=== PATIENT | female | born 1965 | race Caucasian/White ===

== ENCOUNTER 2023-11-17 11:54 | Outpatient (OUT) | payer BC, SELFPAY ==
[2023-11-17 13:25] LABS: Internal Control Within Normal Limits; Occult Blood Negative
== END 2023-11-17 11:55 | disposition home or self-care (01) ==
LOC: LAB 11:56
PROVIDERS: PCP Family Medicine; Visit Provider Family Medicine
DX: Z00.00 Encounter for general adult medical examination without abnormal findings (principal)
CPT/HCPCS: G0328

== ENCOUNTER 2024-04-01 07:36 | Emergency (ER) | payer BC, SELFPAY ==
[2024-04-01 07:43] VITALS: BP 141/98; PULSE 74; TEMP 36.7; O2SAT 97; BMI 29.8
--- OUTSIDE RECORDS SUMMARY | 2024-04-01 07:43 | XMS_ITS | CCD ---
Author Organization [facility] CliniSyil Care Team Providers Care Textile Conservator Name Role Phone Jairo Galaviz Unavailable Alecia Vallecillo Unavailable MD Jason Quick Primary Care Provider [phone] FAISAL Vallecillo Attending Provider DO Jairo Galaviz Attending Provider [phone] MD Jason Quick Referring Provider Self, Referral Attending Provider Unavailable Vera Nagel Unavailable ARIANNE ., DR GOMEZ Primary Care Unavailable HOY ., DR GOMEZ Admitting Unavailable HOY ., DR GOMEZ Attending Unavailable HOY ., DR GOMEZ Consulting Unavailable HOY ., DR GOMEZ Consulting Unavailable HOY ., DR GOMEZ Primary Care Unavailable HOY ., DR GOMEZ Admitting Unavailable HOY ., DR GOMEZ Attending Unavailable HOY ., DR GOMEZ Consulting Unavailable HOY ., DR GOMEZ Primary Care Unavailable HOY ., DR GOMEZ Admitting Unavailable HOY ., DR GOMEZ Attending Unavailable HOY ., DR GOMEZ Primary Care Unavailable MEG ROBISON Admitting Unavailable MEG ROBISON Attending Unavailable MEG ROBISON Consulting Unavailable MD Jason Quick Primary Care Provider [phone] MD Jason Quick Referring Provider Self, Referral Attending Provider Unavailable NADIA FLOWER Referring Unavailable JASON QUICK Primary Care Unavailable MD Jason Quick Primary Care Provider [phone] Self, Referral Attending Provider Unavailable Jason Quick Primary Care Unavailable Self, Referral Attending Unavailable Self, Referral Admitting Unavailable Medications Current Medications Medication Drug Class(es) Dates Sig (Normalized) Sig (Original) Acetaminophen (4 sources) Tylenol Active [id number] 200 actuat albuterol 0.09 mg/actuat metered dose inhaler (1 source) beta2-Adrenergic Agonist Start: 06-24-2022 take 2 puff(s) by inhalation every four hours as needed Albuterol Sulfate HFA 108 (90 Base) MCG/ACT 2 puffs as needed Inhalation every 4 hours for 14 days Jun, Active benzonatate 100 mg oral capsule (1 source) Non-narcotic Antitussive Start: 06-24-2022 take 1 capsule by mouth every eight hours Tessalon Perles 100 MG 1 capsule as needed Orally Three times a day for 7 days Jun, Active Cetirizine (8 sources) Histamine-1 Receptor Antagonist ZyrTEC Allergy Active citalopram 40 mg oral tablet (14 sources) Serotonin Reuptake Inhibitor Start: 08-11-2023 take 40 mg by mouth once daily Citalopram Active 40 MG PO Daily August 11, 2023 12:00am Citalopram [place] bromide 40 MG Orally Once a day Active Crutches Underarm Crutches (1 source) Start: 11-23-2020 Crutches Under arm Crutches Nov, Active doxycycline monohydrate 100 mg oral capsule (1 source) Tetracycline-clas s Drug Start: 06-24-2022 take 1 capsule by mouth every twelve hours Doxycycline Monohydrate 100 MG 1 capsule Orally every 12 hrs for 10 days Jun, Active Handicap placards as directed (9 sources) Start: 11-25-2020 Handicap placa rds as directed as directed as directed as directed for 182 days 6 months Nov, Active meclizine hydrochloride 25 mg oral tablet (6 sources) Antiemetic Start: 08-11-2023 take 25 mg by mouth four times daily Meclizine Active 25 MG PO Four times daily August 11, 2023 12:00am Meclizine HCl Ac tive 24 hr metFORMIN hydrochloride 500 mg extended release oral tablet (5 sources) Biguanide Start: 10-06-2023 End: 12-28-2023 take 1 tablet by mouth twice daily, then take 1 tablet by mouth every week, then take 2 tablets by mouth twice daily Metformin Active 1000 MG PO Twice daily 360 December 28, 2023 5:20pm Start with one tab daily, increase weekly by 1 tablet, goal 2 tabs twice daily. move to previous dose if any toleration issues methylPREDNISolone 4 mg oral tablet (1 source) Corticosteroid Start: 06-24-2022 methylPREDNISolone 4 MG as directed Orally for daily dose take half with breakfast, half with dinner for 6 days Jun, Active pantoprazole 40 mg delayed release oral tablet (17 sources) Proton Pump Inhibitor Start: 11-24-2023 take 40 mg by mouth once daily Pantoprazole Active 40 MG PO Daily November 24, 2023 8:51am Start: 08-11-2023 End: 11-24-2023 Pantoprazole Discontinued MG PO August 11, 2023 12:00am November 24, 2023 8:51am Start: 08-11-2023 Pantoprazole A ctive MG PO August 11, 2023 12:00am Pantoprazole Sod ium Active Semaglutide (Weight Loss) (2 sources) Start: 12-07-2023 Semaglutide (W eight Loss) (Wemadivy) 0.25 mg/0.5 mL pen injector Active 0.25 MG SUBCUT every week 2 December 07, 2023 12:00am administer weeks 1 through 4 of therapy Parmjit George (1 source) Start: 11-25-2020 Parmjit suarez Nov, Active Completed/Discontinued Medications Medication Drug Class(es) Dates Sig (Normalized) Sig (Original) Crutches-Aluminum - (7 sources) Start: 11-15-2021 Crutches-Aluminum - as directed Nov, Not-Taking Start: 11-15-2021 Crutches-Alumi num - as directed Nov, Active Estradiol (9 sources) Estrogen Estrace Not-Taki ng Estrace Active naproxen sodium 550 mg oral tablet (9 sources) Nonsteroidal Anti-inflammatory Drug Start: 11-15-2021 take 1 tablet by mouth every twelve hours at mealtime as needed Naproxen Sodium 550 MG 1 tablet with food or milk as needed Orally every 12 hrs for 7 days Nov, Not-Taking Start: 11-23-2020 take 1 tablet by ellen th every twelve hours at mealtime as needed Naproxen 500 MG 1 tablet with food or milk as needed Orally every 12 hrs for 7 days Nov, Active Toradol 30 mg/ml (7 sources) Start: 11-23-2020 Toradol 30 mg/ ml Nov, 60 mg Problems Active Problems Problem Classification Problem Date Documented Da te Episodic/Chronic Anxiety disorders (18 sources) Anxiety; Translations: [Anxiety disorder, unspecified] Onset: 09-18-2023 08-11-2023 Chronic Diabetes mellitus without complication (9 sources) Prediabetes; Translations: [Prediabetes] 10-06-2023 Episodic Disorders of lipid metabolism (13 sources) Hyperlipidemia, unspecified; Translations: [Hyperlipidemia] Onset: 09-18-2023 08-11-2023 Chronic Fracture of lower limb (4 sources) Nondisplaced fracture of fifth metatarsal bone, right foot, initial encounter for closed fracture; Translations: [Fracture of unspecified metatarsal bone(s), right foot, initial encounter for closed fracture] Onset: 11-15-2021 Resolved: 12-01-2021 Episodic Immunizations and screening for infectious disease (1 source) Contact with and (suspected) exposure to other viral communicable diseases Episodic Mood disorders (1 source) Mood disorders; Translations: [Depression, unspecified] Onset: 09-18-2023 Nutritional deficiencies (13 sources) Vitamin D deficiency, unspecified; Translations: [Vitamin D deficiency] Onset: 09-18-2023 08-11-2023 Chronic Other lower respiratory disease (1 source) Unspecified acute lower respiratory infection Episodic Other lower respiratory disease (9 sources) Snoring; Translations: [Other respiratory abnormalities] Onset: 09-18-2023 08-11-2023 Episodic Other lower respiratory disease (4 sources) Snoring; Translations: [Snoring] 08-11-2023 Episodic Other nutritional; endocrine; and metabolic disorders (9 sources) Obesity, unspecified; Translations: [Obesity, unspecified] Onset: 09-18-2023 08-11-2023 Chronic Other nutritional; endocrine; and metabolic disorders (4 sources) Body mass index 30+ - obesity; Translations: [Body mass index (BMI) 33.0-33.9, adult] 08-11-2023 Chronic Other nutritional; endocrine; and metabolic disorders (4 sources) Obesity; Translations: [Obesity, unspecified] 08-11-2023 Chronic Other nutritional; endocrine; and metabolic disorders (8 sources) Body mass index (BMI) 33.0-33.9, adult; Translations: [Body Mass Index 33.0-33.9, adult] 08-11-2023 Chronic Other screening for suspected conditions (not mental disorders or infectious disease) (5 sources) Encounter for screening for malignant neoplasm of cervix; Translations: [Encounter for screening mammogram for malignant neoplasm of breast] Onset: 01-03-2022 Episodic Unclassified (2 sources) CONTACT W/AND (SUSP) EXPOS COVID-19; Translations: [CONTACT W/AND (SUSP) EXPOS COVID-19] Onset: 09-22-2021 Viral infection (1 source) COVID-19; Translations: [COVID-19] Onset: 09-22-2021 Past or Other Problems Problem Classification Problem Date Documented Da te Episodic/Chronic Fever of unknown origin (1 source) Fever, unspecified; Translations: [FEVER UNSPECIFIED] Onset: 09-22-2021 Episodic Fracture of lower limb (2 sources) Nondisplaced fracture of lateral malleolus of left fibula, initial encounter for closed fracture; Translations: [Nondisplaced fracture of lateral malleolus of left fibula, initial encounter for closed fracture S82.65XA] Onset: 01-08-2021 Resolved: 02-19-2021 Episodic Other circulatory disease (1 source) Other specified symptoms and signs involving the circulatory and respiratory systems; Translations: [OTH SPEC SX SIGNS INVLV CIRC RS] Onset: 09-22-2021 Episodic Other injuries and conditions due to external causes (1 source) Unspecified injury of right foot, initial encounter Onset: 11-15-2021 Resolved: 11-15-2021 Episodic Unclassified (1 source) CONTACT W/AND (SUSP) EXPOS COVID-19; Translations: [CONTACT W/AND (SUSP) EXPOS COVID-19] Onset: 09-16-2021 Results Test Name Value Interpretation Reference Range Facility MM screening mammo BI w/CADo n 01-26-2024 MM screening mammo BI w/CAD [facility] Main [address] [address] Mammography Report Signed Patient: Erin Avery MR#: [id number] : 1965 Acct:[id number] Age/Sex: 58 / F ADM Date: 01/26/24 Loc: MD Room: Type: [facility] Attending Dr: Referral Self Copies to: Jason Quick MD SELF,REFERRAL Ordering Provider: SELF,REFERRAL Date of Service: 01/26/24 MM/MM screening mammo BI w/CAD: SCREENING CLINICAL DATA: Screening for malignancy. SCREENING MAMMOGRAM - FULL FIELD DIGITAL WITH TOMOSYNTHESIS AND CAD COMPARISON:Mammogram s dating back to 2019. Tomosynthesis craniocaudal and mediolateral oblique views of both breasts were obtained using low- dose digital technique. This examination was reviewed with the aid of CAD. FINDINGS: The breast parenchyma is heterogeneously dense. There are no dominant masses, typically malignant calcifications or architectural distortion. There has been no significant interval change. MM/MM screening mammo BI w/CAD IMPRESSION: NO MAMMOGRAPHIC EVIDENCE OF MALIGNANCY. ROUTINE FOLLOW-UP IS RECOMMENDED IN ONE YEAR. RESULT CODE: 1 Negative DENSITY CODE: 3 (approximately 51-75% glandular) FOLLOW UP: 1YR The false-negative rate of mammography is approximately 10-percent. Management of a palpable abnormality must be based on clinical grounds. Patient was entered into a reminder system with a target due date for the next mammogram. Impression dictated by: Bhanu Mclaughlin Jr., D.OPo01/26/2024 10:31 AM Dictation Location: [facility] Transcribed By: [facility] 01/26/24 1031 Dictated By: Bhanu Mclaughlin Jr, DO 01/26/24 1030 Signed By: 01/26/24 1031 Normal [facility] HbA1c HPLC (Bld) [Mass fract ion]on 10-06-2023 HbA1c (Bld) [Mass fraction] 5.7 % [facility] COMPREHENSIVE METABOLIC PANE Ming 09-18-2023 Albumin [Mass/Vol] 4.0 g/dL Normal 3.2-5.3 [facility] Comment on above: Performed By: #### [place], [address]-4, TSHR, 2132-9, 68837-4 #### [facility] ([id number]) [address], [address] [place] [address] ALP [Catalytic activity/Vol] 111 U/L Normal 39-130 [facility] Comment on above: Performed By: #### C MP, 72966-8, TSHR, 2131-12, 29803-6 #### [facility] ([id number]) [address], [address] [place] [address] ALT [Catalytic activity/Vol] 21 U/L Normal 0-31 [facility] Comment on above: Performed By: #### C MP, 45753-2, TSHR, 2131-12, 12819-6 #### [facility] ([id number]) [address], [address] [place] [address] Anion gap [Moles/Vol] 8 mmol/L Normal 5-15 [facility] Comment on above: Performed By: #### C CHRISTOPHER, 81260-7, TSHR, 2131-12, 59218-9 #### [facility] ([id number]) [address], [address] [place] [address] AST [Catalytic activity/Vol] 20 U/L Normal 0-41 [facility] Comment on above: Performed By: #### C MP, 90329-8, TSHR, 2131-12, 74369-1 #### [facility] ([id number]) [address], [address] [place] [address] Bilirubin [Mass/Vol] 0.4 mg/dL Normal 0.3-1.2 [facility] Comment on above: Performed By: #### C MP, 61852-1, TSHR, 2131-12, 09713-0 #### [facility] ([id number]) [address], [address] [place] [address] Calcium [Mass/Vol] 9.2 mg/dL Normal 8.5-10.5 [facility] Comment on above: Performed By: #### C MP, 55531-8, TSHR, 2131-12, 80735-4 #### [facility] ([id number]) [address], [address] [place] [address] Chloride [Moles/Vol] 103 mmol/L Normal 98-109 [facility] Comment on above: Performed By: #### C CHRISTOPHER, 86137-1, TSHR, 2131-12, 07325-3 #### [facility] ([id number]) [address], [address] [place] [address] CO2 [Moles/Vol] 30 mmol/L Normal 22-32 [facility] Comment on above: Performed By: #### C CHRISTOPHER, 20136-9, TSHR, 2131-12, 31157-9 #### [facility] ([id number]) [address], [address] [place] [address] Creatinine [Mass/Vol] 0.93 mg/dL Normal 0.40-1.00 [facility] Comment on above: Result Comment: METH OD TRACEABLE TO IDMS STANDARD Performed By: #### C CHRISTOPHER, 31788-1, TSHR, 2131-12, 39054-4 #### [facility] ([id number]) [address], [address] [place] [address] GFR/1.73 sq M.predicted among non-blacks MDRD (S/P/Bld) [Vol rate/Area] 71 mL/min/{1.73_m2} Normal >59 [facility] Comment on above: Result Comment: Reported eGFR is based on the CKD-EPI 2020 equation that does not use a race coefficient. Performed By: #### C CHRISTOPHER, 93682-3, TSHR, 2131-12, 04641-0 #### [facility] ([id number]) [address], [address] [place] [address] Glucose [Mass/Vol] 105 mg/dL High 65-99 [facility] Comment on above: Performed By: #### C CHRISTOPHER, 71357-2, TSHR, 2131-12, 06373-9 #### [facility] ([id number]) [address], [address] [place] [address] Potassium [Moles/Vol] 3.9 mmol/L Normal 3.5-5.0 [facility] Comment on above: Performed By: #### C CHRISTOPHER, 70718-8, TSHR, 2131-12, 99016-7 #### [facility] ([id number]) [address], [address] [place] [address] Protein [Mass/Vol] 7.0 g/dL Normal 6.0-8.0 [facility] Comment on above: Performed By: #### C CHRISTOPHER, 64332-8, TSHR, 2131-12, 37621-3 #### [facility] ([id number]) [address], [address] [place] [address] Sodium [Moles/Vol] 141 mmol/L Normal 134-146 [facility] Comment on above: Performed By: #### Erick WHITE, 99096-1, TSHR, 2131-12, 81866-8 #### [facility] ([id number]) [address], [address] [place] [address] Urea nitrogen [Mass/Vol] 13 mg/dL Normal 5-23 [facility] Comment on above: Performed By: #### Erick WHITE, 17483-3, TSHR, 2131-12, 53559-1 #### [facility] ([id number]) [address], [address] [place] [address] Laboratory - Chemistry and C hemistry - challengeon 09-18-2023 Cholesterol [Mass/Vol] 182 mg/dL [facility] Cholesterol in HDL [Mass/Vol] 55 mg/dL [facility] Cholesterol in LDL [Mass/Vol] 104 mg/dL [facility] Triglyceride [Mass/Vol] 113 mg/dL [facility] Albumin [Mass/Vol] 4.0 g/dL [facility] ALP [Catalytic activity/Vol] 111 U/L [facility] ALT [Catalytic activity/Vol] 21 U/L [facility] AST [Catalytic activity/Vol] 20 U/L [facility] Bilirubin [Mass/Vol] 0.4 mg/dL [facility] Calcium [Mass/Vol] 9.2 mg/dL [facility] Chloride [Moles/Vol] 103 mmol/L [facility] CO2 [Moles/Vol] 30 mmol/L [facility] Cobalamin (Vitamin B12) [Mass/Vol] 415 pg/mL [facility] Creatinine [Mass/Vol] 0.93 mg/dL [facility] Glucose [Mass/Vol] 105 mg/dL [facility] Potassium [Moles/Vol] 3.9 mmol/L [facility] Protein [Mass/Vol] 7.0 g/dL [facility] Sodium [Moles/Vol] 141 mmol/L [facility] Urea nitrogen [Mass/Vol] 13 mg/dL [facility] Lipid 1996 panelon 4 Cholesterol [Mass/Vol] 182 mg/dL Normal 150-200 [facility] Comment on above: Performed By: #### Erick WHITE, 34048-5, [facility], 2131-12, 41208-7 #### [facility] ([id number]) [address], [address] [place] [address] Cholesterol in HDL [Mass/Vol] 55 mg/dL Normal >39 [facility] Comment on above: Result Comment: HDL <40 mg/dL - High Risk HDL > or = 40mg/dL- Desirable HDL >60 mg/dL - Negative Risk Performed By: #### Erick WHITE, 37893-9, TSHR, 2131-12, 38823-6 #### [facility] ([id number]) [address], [address] [place] [address] Cholesterol in LDL [Mass/Vol] 104 mg/dL Normal <130 [facility] Comment on above: Result Comment: LDL <100 mg/dL - Desirable LDL >160 mg/dL - High Risk Performed By: #### C CHRISTOPHER, 33572-7, TSHR, 2131-12, 41346-9 #### [facility] ([id number]) [address], [address] [place] [address] Cholesterol in VLDL [Mass/Vol] 23 mg/dL Normal 0-30 [facility] Comment on above: Performed By: #### Erick WHITE, 55280-0, TSHR, 2131-12, 84879-9 #### [facility] ([id number]) [address], [address] [place] [address] CHOLESTEROL:HDL 3.3 Normal 1.0-5.0 [facility] Comment on above: Performed By: #### Erick WHITE, 97387-6, TSHR, 9, 93907-9 #### [facility] ([id number]) [address], [address] [place] [address] Triglyceride [Mass/Vol] 113 mg/dL Normal 27-150 [facility] Comment on above: Performed By: #### C CHRISTOPHER, 85649-6, TSHR, 2131-12, 50840-0 #### [facility] ([id number]) [address], [address] [place] [address] No Panel Informationon 09-17 25-Hydroxy Vitamin D Total 30.2 ng/mL [facility] Thyroid Stimulating Hormone 3rd Gen 2.23 [facility] Estimated GFR (Non- 71 mL/min [facility] TSH WITH REFLEXon 09-18-2023 TSH 2.23 uIU/mL Normal 0.49-4.67 [facility] Comment on above: Performed By: #### Erick WHITE, 72580-4, TSHR, 2131-12, 10315-0 #### [facility] ([id number]) [address] [place] [address], [address] [place] [address] VITAMIN B12on 09-18-2023 Cobalamin (Vitamin B12) [Mass/Vol] 415 pg/mL Normal 180-914 [facility] Comment on above: Performed By: #### C MP, 97723-9, TSHR, 2131-12, 62602-9 #### [facility] ([id number]) [address], [address] [place] [address] Vitamin D+Metabolites [Mass/ Vol]on 09-18-2023 VITAMIN D 25 HYD TOT 30.2 ng/mL Normal 30-100 [facility] Comment on above: Result Comment: Vitamin D status 25 [place] Vitamin D Deficiency <20 ng/mL Insufficiency 20-29 ng/mL Sufficiency 30-100 ng/mL Toxicity >100 ng/mL NOTE: A pediatric reference range has not been established by the mother superior of this kit. The [place] [employer] recommends a Vitamin D level of = or >20ng/mL in infants and children. Performed By: #### C CHRISTOPHER, 53506-8, TSHR, 2131-12, 39351-3 #### [facility] ([id number]) [address] [place] [address], [address] [place] [address] CBC AUTO DIFFon 07-16-2022 BASO # 0.0 103/ul Normal 0.0-0.1 [facility] Comment on above: Performed By: #### C BC #### [facility] [address] [place], [place] [address] Dr. Myke Maldonado Basophils/100 WBC (Bld) 0.5 % Normal 0.2-2.0 [facility] Comment on above: Performed By: #### C BC #### [facility] [address] [place] [address] Dr. Myke Maldonado EO # 0.1 103/ul Normal 0.0-0.7 [facility] Comment on above: Performed By: #### C BC #### [facility] [address] [place] [address] Dr. Myke Maldonado Eosinophils/100 WBC (Bld) 1.1 % Normal 0.9-7.0 [facility] Comment on above: Performed By: #### C BC #### [facility] [address] [place] [address] Dr. Myke Maldonado Erythrocyte distribution width (RBC) [Ratio] 14.2 % Normal 11.0-15.0 [facility] Comment on above: Performed By: #### C BC #### [facility] [address] [place] [address] Dr. Myke Maldonado Hematocrit (Bld) [Volume fraction] 38.2 % Normal 36.0-48.0 [facility] Comment on above: Performed By: #### C BC #### [facility] [address] [place] [address] Dr. Myke Maldonado Hemoglobin (Bld) [Mass/Vol] 12.4 g/dL Normal 12.0-16.0 [facility] Comment on above: Performed By: #### C BC #### [facility] [address] [place] [address] Dr. Myke Maldonado IG # 0.02 10e3/ul Normal 0.00-0.03 [facility] Comment on above: Performed By: #### C BC #### [facility] [address] [place] [address] Dr. Myke Maldonado IG % 0.4 % Normal 0.0-0.5 [facility] Comment on above: Performed By: #### C BC #### [facility] [address] [place] [address] Dr. Myke Maldonado LYMPH # 1.3 103/ul Normal 1.2-3.8 [facility] Comment on above: Performed By: #### C BC #### [facility] [address] [place] [address] Dr. Myke Maldonado Lymphocytes/100 WBC (Bld) 23.2 % Normal 20.5-60.0 [facility] Comment on above: Performed By: #### C BC #### [facility] [address] [place] [address] Dr. Myke Maldonado MANUAL DIFF REQ NO Normal [facility] Comment on above: Performed By: #### C BC #### [facility] [address] [place] [address] Dr. Myke Maldonado MCH (RBC) [Entitic mass] 26.9 pg Normal 26.7-34.0 [facility] Comment on above: Performed By: #### C BC #### [facility] [address] [place] [address] Dr. Myke Maldonado MCHC (RBC) [Mass/Vol] 32.5 g/dL Normal 29.9-35.2 [facility] Comment on above: Performed By: #### C BC #### [facility] [address] [place] [address] Dr. Myke Maldonado MCV (RBC) [Entitic vol] 82.9 fL Normal 81.0-99.0 [facility] Comment on above: Performed By: #### C BC #### [facility] [address] [place] [address] Dr. Myke Maldonado MONO # 0.4 103/ul Normal 0.3-0.8 [facility] Comment on above: Performed By: #### C BC #### [facility] [address] [place] [address] Dr. Myke Maldonado Monocytes/100 WBC (Bld) 7.5 % Normal 1.7-12.0 [facility] Comment on above: Performed By: #### C BC #### [facility] [address] [place] [address] Dr. Myke Maldonado NEUT # 3.8 103/ul Normal 1.4-6.5 [facility] Comment on above: Performed By: #### C BC #### [facility] [address] [place] [address] Dr. Myke Maldonado Neutrophils/100 WBC (Bld) 67.3 % Normal 43.0-75.0 [facility] Comment on above: Performed By: #### C BC #### [facility] [address] [place] [address] Dr. Myke Maldonado Platelet mean volume (Bld) [Entitic vol] 9.6 fL Normal 9.5-13.5 [facility] Comment on above: Performed By: #### C BC #### [facility] [address] [place] [address] Dr. Myke Maldonado PLT 264 103/ul Normal 150-450 [facility] Comment on above: Performed By: #### C BC #### [facility] [address] [place] [address] Dr. Myke Maldonado RBC 4.61 106/ul Normal 4.20-5.40 [facility] Comment on above: Performed By: #### C BC #### [facility] [address] [place] [address] Dr. Myke Maldonado WBC 5.7 103/ul Normal 4.0-11.0 [facility] Comment on above: Performed By: #### C BC #### [facility] [address] [place] [address] Dr. Myke Maldonado FREE THYROXINE INDEX T7on FTI 2.27 Normal 1.30-4.50 [facility] Comment on above: Performed By: #### T SH, CMP, LIPID, T7 #### [facility] [address] [place] [address] Dr. Myke Maldonado T3U 36.0 % Normal 30.0-39.0 [facility] Comment on above: Performed By: #### T SH, CMP, LIPID, T7 #### [facility] [address] [place] [address] Dr. Myke Maldonado T4 [Mass/Vol] 6.30 ug/dL Normal 4.80-13.90 [facility] Comment on above: Performed By: #### T SH, CMP, LIPID, T7 #### [facility] [address] [place] [address] Dr. Myke Maldonado GLYCOHEMOGLOBIN A1Con 04-01- 2023 ADA RECOMMENDATION SEE BELOW Normal [facility] Comment on above: Result Comment: ADA RECOMMENDED LIMIT 4.0 - 6.0 ADA THERAPEUTIC TARGET < 7.0 ACTION SUGGESTED > 7.0 Performed By: #### A 1C #### [facility] [address] [place] [address] Dr. Myke Maldonado Glucose [Mass/Vol] 120 mg/dL Normal [facility] Comment on above: Performed By: #### A 1C #### [facility] [address] [place] [address] Dr. Myke Maldonado HbA1c (Bld) [Mass fraction] 5.8 % Normal 4.5-6.2 [facility] Comment on above: Performed By: #### A 1C #### [facility] [address] [place] [address] Dr. Myke Maldonado LIPID PROFILEon 07-16-2022 CHOL-HDL RATIO NORM SEE BELOW Normal [facility] Comment on above: Result Comment: 3.3 - 4.4 LOW RISK 4.4 - 7.1 AVERAGE RISK 7.1 - 11.0 MODERATE RISK >11.0 HIGH RISK Performed By: #### T SH, CMP, LIPID, T7 #### [facility] [address] [place] [address] Dr. Myke Maldonado Cholesterol [Mass/Vol] 202 mg/dL Critically high <=200 [facility] Comment on above: Performed By: #### T SH, CMP, LIPID, T7 #### [facility] [address] [address] [address] Myke Maldonado Cholesterol in HDL [Mass/Vol] 64 mg/dL Critically high 40-60 [facility] Comment on above: Performed By: #### T SH, CMP, LIPID, T7 #### [facility] [address] [address] [address] Myke Maldonado Cholesterol in LDL [Mass/Vol] 125.0 mg/dL Normal [facility] Comment on above: Performed By: #### T SH, CMP, LIPID, T7 #### [facility] [address] [place] [address] Dr. Myke Maldonado Cholesterol.total/C holesterol in HDL [Mass ratio] 3.2 {ratio} Normal [facility] Comment on above: Performed By: #### T SH, CMP, LIPID, T7 #### [facility] [address] [address] [address] Myke Maldonado HDL NORMAL > or = 60 mg/dl - LOW CARDIOVASCULAR RISK <40 mg/dl - HIGH CARDIOVASCULAR RISK Normal [facility] Comment on above: Performed By: #### T SH, CMP, LIPID, T7 #### [facility] [address] [address] [address] Myke Maldonado LDL CALC NORMAL SEE BELOW Normal [facility] Comment on above: Result Comment: <100 mg/dl OPTIMAL 100 - 129 mg/dl NEAR OR ABOVE OPTIMAL 130 - 159 mg/dl BORDERLINE HIGH 160 - 189 mg/dl HIGH >190 mg/dl VERY HIGH Performed By: #### T SH, CMP, LIPID, T7 #### [facility] [address] [address] [address] Myke Maldonado Triglyceride [Mass/Vol] 65 mg/dL Normal <=150 [facility] Comment on above: Performed By: #### T SH, CMP, LIPID, T7 #### [facility] [address] [place] [address] Dr. Myke Maldonado VLDL CALC 13.0 mg/dL Normal [facility] Comment on above: Performed By: #### T SH, CMP, LIPID, T7 #### [facility] [address] [place] [address] Dr. Myke Maldonado PROF 14(COMP METB)on 023 Albumin [Mass/Vol] 3.6 g/dL Normal 3.4-5.0 [facility] Comment on above: Performed By: #### T SH, CMP, LIPID, T7 #### [facility] [address] [place] [address] Dr. Myke Maldonado Albumin/Globulin [Mass ratio] 1.0 {ratio} Normal [facility] Comment on above: Performed By: #### T SH, CMP, LIPID, T7 #### [facility] [address] [place] [address] Dr. Myke Maldonado ALP [Catalytic activity/Vol] 110 U/L Normal 46-116 [facility] Comment on above: Performed By: #### T SH, CMP, LIPID, T7 #### [facility] [address] [address] [address] Myke Maldonado ALT [Catalytic activity/Vol] 18 U/L Normal 14-59 [facility] Comment on above: Performed By: #### T SH, CMP, LIPID, T7 #### [facility] [address] [address] [address] Myke Maldonado Anion gap [Moles/Vol] 7.1 mmol/L Normal [facility] Comment on above: Performed By: #### T SH, CMP, LIPID, T7 #### [facility] [address] [place] [address] Dr. Myke Maldonado AST [Catalytic activity/Vol] 17 U/L Normal 15-37 [facility] Comment on above: Performed By: #### T SH, CMP, LIPID, T7 #### [facility] [address] [place] [address] Dr. Myke Maldonado Bilirubin [Mass/Vol] 0.4 mg/dL Normal 0.2-1.0 [facility] Comment on above: Performed By: #### T SH, CMP, LIPID, T7 #### [facility] [address] [place] [address] Dr. Myke Maldonado Calcium [Mass/Vol] 9.1 mg/dL Normal 8.5-10.1 [facility] Comment on above: Performed By: #### T SH, CMP, LIPID, T7 #### [facility] [address] [place] [address] Dr. Myke Maldonado Chloride [Moles/Vol] 105 mmol/L Normal 98-107 [facility] Comment on above: Performed By: #### T SH, CMP, LIPID, T7 #### [facility] [address] [address] [address] Myke Maldonado CO2 [Moles/Vol] 31.9 mmol/L Normal 21.0-32.0 [facility] Comment on above: Performed By: #### T SH, CMP, LIPID, T7 #### [facility] [address] [address] [address] Myke Maldonado Creatinine [Mass/Vol] 0.75 mg/dL Normal 0.55-1.02 [facility] Comment on above: Performed By: #### T SH, CMP, LIPID, T7 #### [facility] [address] [address] [address] Myke Maldonado EGFR-AF PANAMANIAN >60 Normal >=60 [facility] Comment on above: Performed By: #### T SH, CMP, LIPID, T7 #### [facility] [address] [address] [address] Myke Maldonado EGFR-NON AF PANAMANIAN >60 Normal >=60 [facility] Comment on above: Performed By: #### T SH, CMP, LIPID, T7 #### [facility] [address] [address] [address] Myke Maldonado Globulin (S) [Mass/Vol] 3.5 g/dL Normal [facility] Comment on above: Performed By: #### T SH, CMP, LIPID, T7 #### [facility] [address] [address] [address] Myke Maldonado Glucose [Mass/Vol] 95 mg/dL Normal 74-106 [facility] Comment on above: Performed By: #### T SH, CMP, LIPID, T7 #### [facility] [address] [address] [address] Myke Maldonado Potassium [Moles/Vol] 4.0 mmol/L Normal 3.5-5.1 [facility] Comment on above: Performed By: #### T SH, CMP, LIPID, T7 #### [facility] [address] [address] [address] Myke Maldonado Protein [Mass/Vol] 7.1 g/dL Normal 6.4-8.2 [facility] Comment on above: Performed By: #### T SH, CMP, LIPID, T7 #### [facility] [address] [address] [address] Myke Maldonado Sodium [Moles/Vol] 140 mmol/L Normal 136-145 [facility] Comment on above: Performed By: #### T SH, CMP, LIPID, T7 #### [facility] [address] [address] [address] Myke Maldonado Urea nitrogen [Mass/Vol] 13.0 mg/dL Normal 7.0-18.0 [facility] Comment on above: Performed By: #### T SH, CMP, LIPID, T7 #### [facility] [address] [address] [address] Myke Maldonado Urea nitrogen/Creatinine [Mass ratio] 17.3 mg/mg Normal [facility] Comment on above: Performed By: #### T SH, CMP, LIPID, T7 #### [facility] [address] [place] [address] Dr. Myke Maldonado TSHon 07-16-2022 TSH 1.314 uIU/mL Normal 0.358-3.740 [facility] Comment on above: Performed By: #### T SH, CMP, LIPID, T7 #### [facility] [address] [place] [address] Dr. Myke Maldonado OCC BLD IMMUNO SCREENon 06-15 OCCULT BLOOD Negative Normal NEGATIVE [facility] Comment on above: Performed By: #### O BSCRN #### [facility] [address] [place] [address] Dr. Myke Maldonado COVID + FLU Quick Testingon 06-24-2022 SARS-CoV-2 (COVID-19) RNA GEORGI+probe Ql (Unsp spec) Negative [facility] [employer] Other COVID + FLU Quick Testing Negative [facility] [employer] Other PAP ACOG PANEL 2: 30 to 65on 01-06-2022 . . Normal [facility] Comment on above: Result Comment: Perf ormed at: BA Performed By: #### [id number] #### [facility] [address] [place] [address] Dr. Myke Maldonado Age Gdln ACOG Testing 30-65 Normal [facility] Comment on above: Performed By: #### [id number] #### [facility] [address] [place] [address] Dr. Myke Maldonado DIAGNOSIS: Comment Normal [facility] Comment on above: Result Comment: NEGA TIVE FOR INTRAEPITHELIAL LESION OR MALIGNANCY. CELLULAR CHANGES ASSOCIATED WITH ATROPHY ARE PRESENT. Performed at: [facility] Performed By: #### [id number] #### [facility] [address] [place] [address] Dr. Myke Maldonado HPV Aptima Negative Normal Negative [facility] Comment on above: Result Comment: This nucleic acid amplification test detects fourteen high-risk HPV types (16,18,31,33,35,39,45,51,52,56,58,59,66,68) without differentiation. Performed at: =G Performed By: #### [id number] #### [facility] [address] [place] [address] Dr. Myke Maldonado Methodology: Comment Normal [facility] Comment on above: Result Comment: This liquid based ThinPrep(R) pap test was screened with the use of an image guided system. Performed at: WB Performed By: #### [id number] #### [facility] [address] [place] [address] Dr. Myke Maldonado Note: Comment Normal [facility] Comment on above: Result Comment: The Pap smear is a screening test designed to aid in the detection of premalignant and malignant conditions of the uterine cervix. It is not a diagnostic procedure and should not be used as the sole means of detecting cervical cancer. Both false-positive and false-negative reports do occur. . Performed at: WB Performed By: #### [id number] #### [facility] [address] [place] [address] Dr. Myke Maldonado Performed by: Comment Normal [facility] Comment on above: Result Comment: Jake Lofton, Sales Route Driver (ASCP) Performed at: [facility] Performed By: #### [id number] #### [facility] [address] [place] [address] Dr. Myke Maldonado Specimen adequacy: Comment Normal [facility] Comment on above: Result Comment: Sati sfactory for evaluation. Endocervical component may not be distinguished in cases of atrophy. Performed at: Performed By: #### [id number] #### [facility] [address] [place] [address] Dr. Myke Maldonado XR foot RT min 3V*on 022 XR foot RT min 3V* [facility] [employer] Other XR foot RT min 3V* [facility] [employer] Other XR foot RT min 3V* [address] [place] [address] [employer] Other XR foot RT min 3V* [place] [address] [employer] Other XR foot RT min 3V* XRay Report [employer] Other XR foot RT min 3V* Signed [employer] Other XR foot RT min 3V* Patient: Erin Avery MR#: [id number] [employer] Other XR foot RT min 3V* [id number] [employer] Other XR foot RT min 3V* : 1965 Acct:[id number] [employer] Other XR foot RT min 3V* Age/Sex: 56 / F ADM Date: 12/01/21 [employer] Other XR foot RT min 3V* Loc: [facility] Room: Type: REG [facility] [employer] Other XR foot RT min 3V* Attending Dr: Jairo Galaviz DO [employer] Other XR foot RT min 3V* Copies to: Jairo Galaviz DO [employer] Other XR foot RT min 3V* Ordering Provider: Jairo Galaviz DO [employer] Other XR foot RT min 3V* Date of Service: 12/01/21 [employer] Other XR foot RT min 3V* XR/XR foot RT min 3V*: Closed fracture of shaft of metatarsal bone of [place] [employer] Other XR foot RT min 3V* right foot wi Nor [employer] Other XR foot RT min 3V* 3 viewsRIGHT foot plain film [employer] Other XR foot RT min 3V* COMPARISON:11/15/21 [employer] Other XR foot RT min 3V* HISTORY:Status post RIGHT 5th metatarsal fracture [place] [employer] Other XR foot RT min 3V* Bony alignment unchanged. No obvious healing present. [employer] Other XR foot RT min 3V* XR/XR foot RT min 3V* [employer] Other XR foot RT min 3V* IMPRESSION:Stable findings [employer] Other XR foot RT min 3V* Impression dictated by: Herve Dunbar M.D.12/01/2021 2:11 PM [employer] Other XR foot RT min 3V* Dictation Location: [place] [address] [employer] Other XR foot RT min 3V* Transcribed By: WESTON 12/01/[address] [place] [address] [employer] Other XR foot RT min 3V* Dictated By: Herve Dunbar DO 12/01/21 [facility] [employer] Other XR foot RT min 3V* Signed By: [employer] Other XR foot RT min 3V* 12/01/[address] [place] [address] [employer] Other SYMPTOMATIC COVID-19 ANTIGEN on 09-16-2021 EUA Statement SEE BELOW Normal [facility] Comment on above: Result Comment: This test has not been FDA cleared or approved, but has been authorized by the FDA under an Emergency Use Authorization (EUA) for use by authorized laboratories certified under CLIA that meet the requirements to perform moderate or high complexity testing. This test has been authorized only for the detection of proteins from SARS-CoV-2, not for any other viruses or pathogens. The emergency use of this test is authorized for the duration of the declaration that circumstances exist justifying the authorization of emergency use of in vitro diagnostic tests for detection and/or diagnosis of Covid-19 under section 564(b)(1) of the Act, 21 U.S.C. 360bbb-3(b)(1), unless the declaration is terminated or authorization is revoked sooner. Performed By: #### C VDAGS #### [facility] [address] [place] [address] Dr. Myke Maldonado SARS-CoV-2 (COVID-19) RNA GEORGI+probe Ql (Unsp spec) Positive Critically abnormal NEGATIVE [facility] Comment on above: Performed By: #### C VDAGS #### [facility] [address] [place] [address] Dr. Myke Maldonado XR ankle LT min 3V*on 2020 XR ankle LT min 3V* [facility] [employer] Other XR ankle LT min 3V* [facility] [employer] Other XR ankle LT min 3V* [address] [employer] Other XR ankle LT min 3V* [address] [employer] Other XR ankle LT min 3V* XRay Report [place] [employer] Other XR ankle LT min 3V* Signed [employer] Other XR ankle LT min 3V* Patient: Erin Avery MR#: [id number] [facility] [employer] Other XR ankle LT min 3V* [id number] [facility] [employer] Other XR ankle LT min 3V* : 1965 Acct:[id number] [employer] Other XR ankle LT min 3V* Age/Sex: 55 / F ADM Date: 02/19/21 [employer] Other XR ankle LT min 3V* Loc: [facility] Room: Type: [facility] [employer] Other XR ankle LT min 3V* Attending Dr: Jairo Galaviz DO [employer] Other XR ankle LT min 3V* Ordering Provider: Jairo Galaviz DO [employer] Other XR ankle LT min 3V* Date of Service: 02/19/21 [employer] Other XR ankle LT min 3V* XR/XR ankle LT min 3V*: Nondisplaced fracture of lateral malleolus of [employer] Other XR ankle LT min 3V* left fibula, i N [employer] Other XR ankle LT min 3V* Copies to: Jairo Galaviz DO [employer] Other XR ankle LT min 3V* XR ankle LT min 3V* [employer] Other XR ankle LT min 3V* CLINICAL HISTORY: Follow-up lateral malleolar fracture. [employer] Other XR ankle LT min 3V* COMPARISON: 01/08/2021 [employer] Other XR ankle LT min 3V* FINDINGS: AP, lateral and oblique views of the left ankle were obtained. There is an essentially [employer] Other XR ankle LT min 3V* nondisplaced, transversely oriented, healing fracture at the tip of the lateral malleolus. The [employer] Other XR ankle LT min 3V* radiolucent fracture line is still visible. No significant callus formation is demonstrated. The [employer] Other XR ankle LT min 3V* ankle mortise is maintained. Slight spur at the tip of the medial malleolus is noted. [employer] Other XR ankle LT min 3V* Soft tissue swelling is noted at the lateral aspect left ankle. A plantar enthesophyte of the os [employer] Other XR ankle LT min 3V* calcis is again noted. [employer] Other XR ankle LT min 3V* XR/XR ankle LT min 3V* [employer] Other XR ankle LT min 3V* IMPRESSION: [employer] Other XR ankle LT min 3V* A HEALING FRACTURE AT THE TIP OF THE LATERAL MALLEOLUS, STABLE ALIGNMENT. [employer] Other XR ankle LT min 3V* RADIOLUCENT FRACTURE LINE STILL VISIBLE. [employer] Other XR ankle LT min 3V* Impression dictated by: Kole Cobos M.D.02/19/2021 12:22 PM [employer] Other XR ankle LT min 3V* Dictation Location: [facility] [employer] Other XR ankle LT min 3V* Transcribed By: WESTON 02/19/21 1222 [employer] Other XR ankle LT min 3V* Dictated By: Kole Cobos MD 02/19/21 1219 [employer] Other XR ankle LT min 3V* Signed By: [employer] Other XR ankle LT min 3V* 02/19/21 1222 No [employer] [place] Other XR ankle LT min 3V*on 2020 XR ankle LT min 3V* [facility] [employer] Other XR ankle LT min 3V* [facility] [place] [employer] Other XR ankle LT min 3V* [address] [place] [address] [employer] Other XR ankle LT min 3V* [place] [address] [employer] Other XR ankle LT min 3V* XRay Report [place] [employer] Other XR ankle LT min 3V* Signed [employer] Other XR ankle LT min 3V* Patient: Erin Avery MR#: [id number] [employer] Other XR ankle LT min 3V* [id number] [employer] Other XR ankle LT min 3V* : 1965 Acct:[id number] [employer] Other XR ankle LT min 3V* Age/Sex: 55 / F ADM Date: 01/08/21 [employer] Other XR ankle LT min 3V* Loc: [facility] Room: Type: REG CLI [employer] Other XR ankle LT min 3V* Attending Dr: Jairo Galaviz DO [employer] Other XR ankle LT min 3V* Ordering Provider: Jairo Galaviz DO [employer] Other XR ankle LT min 3V* Date of Service: 01/08/21 [employer] Other XR ankle LT min 3V* XR/XR ankle LT min 3V*: PAIN [employer] Other XR ankle LT min 3V* Copies to: Jairo Galaviz DO [employer] Other XR ankle LT min 3V* Left ankle 01/08/2021. [employer] Other XR ankle LT min 3V* CLINICAL DATA: Follow-up left ankle fracture. [employer] Other XR ankle LT min 3V* FINDINGS: 3 views of the left ankle were obtained and are compared with a prior study 12/16/2020. [employer] Other XR ankle LT min 3V* There is redemonstration of a mildly displaced fracture of the distal lateral malleolus. This [employer] Other XR ankle LT min 3V* finding is unchanged when compared with the prior exam. No other fracture is identified. No [employer] Other XR ankle LT min 3V* dislocation is seen. There is plantar calcaneal spurring. Soft tissue swelling at the ankle has [employer] Other XR ankle LT min 3V* improved. [employer] Other XR ankle LT min 3V* XR/XR ankle LT min 3V* [employer] Other XR ankle LT min 3V* IMPRESSION: Stable left lateral malleolus fracture. [employer] Other XR ankle LT min 3V* Impression dictated by: Mark Peres Jr., M.D.01/08/2021 1:43 PM [employer] Other XR ankle LT min 3V* Dictation Location: [place] [address] [employer] Other XR ankle LT min 3V* Transcribed By: WESTON 01/08/21 1343 [employer] Other XR ankle LT min 3V* Dictated By: Mark Peres Jr, MD 01/08/21 1341 [employer] Other XR ankle LT min 3V* Signed By: [employer] Other XR ankle LT min 3V* 01/08/21 1343 No rt [employer] Other Vital Signs Date Time Vital Sign Value Performing Clinician Facility 01-26-2024 08:49-0400 Body height 175.9 cm [facility] 01-26-2024 08:34-0400 Body mass index (BMI) [Ratio] 31.7 kg/m2 [facility] 01-26-2024 08:34-0400 Body weight 98.14 kg [facility] 01-26-2024 08:34-0400 Diastolic blood pressure 88 mm[Hg] [facility] 01-26-2024 08:34-0400 Heart rate 73 /min [facility] 01-26-2024 08:34-0400 Respiratory rate 18 /min [facility] 01-26-2024 08:34-0400 SaO2% (BldA) [Mass fraction] 97 % [facility] 01-26-2024 08:34-0400 Systolic blood pressure 134 mm[Hg] [facility] 11-24-2023 08:47-0400 Body height 175.9 cm [facility] 11-24-2023 08:47-0400 Body mass index (BMI) [Ratio] 32.3 kg/m2 [facility] 11-24-2023 08:47-0400 Body weight 99.9 kg [facility] 11-24-2023 08:47-0400 Diastolic blood pressure 77 mm[Hg] [facility] 11-24-2023 08:47-0400 Heart rate 65 /min [facility] 11-24-2023 08:47-0400 Respiratory rate 18 /min [facility] 11-24-2023 08:47-0400 SaO2% (BldA) [Mass fraction] 95 % [facility] 11-24-2023 08:47-0400 Systolic blood pressure 134 mm[Hg] [facility] 10-06-2023 07:51-0400 Body height 175.9 cm [facility] 10-06-2023 07:51-0400 Body mass index (BMI) [Ratio] 32.5 kg/m2 [facility] 10-06-2023 07:51-0400 Body weight 100.49 kg [facility] 10-06-2023 07:51-0400 Diastolic blood pressure 84 mm[Hg] [facility] 10-06-2023 07:51-0400 Heart rate 84 /min [facility] 10-06-2023 07:51-0400 Respiratory rate 18 /min [facility] 10-06-2023 07:51-0400 SaO2% (BldA) [Mass fraction] 98 % [facility] 10-06-2023 07:51-0400 Systolic blood pressure 131 mm[Hg] [facility] 08-11-2023 08:31-0400 Body height 175.9 cm [facility] 08-11-2023 08:31-0400 Body mass index (BMI) [Ratio] 33.1 kg/m2 [facility] 08-11-2023 08:31-0400 Body weight 102.65 kg [facility] 08-11-2023 08:31-0400 Diastolic blood pressure 86 mm[Hg] [facility] 08-11-2023 08:31-0400 Heart rate 69 /min [facility] 08-11-2023 08:31-0400 Respiratory rate 18 /min [facility] [facility] 08:31-0400 SaO2% (BldA) [Mass fraction] 97 % [facility] 08-11-2023 08:31-0400 Systolic blood pressure 136 mm[Hg] [facility] 06-24-2022 11:10-0500 Body height 175.26 cm Vera Nagel Other [facility] [facility] [employer] Other 06-24-2022 11:10-0500 Body mass index (BMI) [Ratio] 30.27 kg/m2 Vera Nagel Other [employer] Other 06-24-2022 11:10-0500 Body temperature 98.6 [degF] Vera Nagel Other [employer] Other 06-24-2022 11:10-0500 Body weight 92.99 kg Vera Nagel Other [employer] Other 06-24-2022 11:10-0500 Respiratory rate 18 /min Vera Nagel Other [employer] Other 06-24-2022 11:10-0500 SaO2% (BldA) [Mass fraction] 97 % Vera Nagel Other [employer] Other 11-15-2021 16:30-0400 Body height 175.26 cm Alecia Ruth Ann Other [employer] Other 11-15-2021 16:30-0400 Body mass index (BMI) [Ratio] 30.42 kg/m2 Alecia Ruth Ann Other [employer] Other 11-15-2021 16:30-0400 Body temperature 98.2 [degF] Alecia Ruth Ann Other [employer] Other 11-15-2021 16:30-0400 Body weight 93.44 kg Alecia Zunigaault Other [employer] Other 11-15-2021 16:30-0400 Diastolic blood pressure 86 mm[Hg] Alecia Ruth Ann Other [employer] Other 11-15-2021 16:30-0400 Respiratory rate 18 /min Alecia Ruth Ann Other [employer] Other 11-15-2021 16:30-0400 SaO2% (BldA) [Mass fraction] 99 % Alecia Ruth Ann Other [employer] Other 11-15-2021 16:30-0400 Systolic blood pressure 151 mm[Hg] Alecia Ruth Ann Other [employer] Other 02-19-2021 10:45-0400 Body height 175.26 cm Jairo Galaviz Other [employer] Other 02-19-2021 10:45-0400 Body mass index (BMI) [Ratio] 32.63 kg/m2 Jairo Galaviz Other [employer] Other 02-19-2021 10:45-0400 Body weight 100.25 kg Jairo Galaviz Other [employer] Other 01-08-2021 11:15-0400 Body height 175.26 cm Jairo Galaviz Other [employer] Other 01-08-2021 11:15-0400 Body mass index (BMI) [Ratio] 32.48 kg/m2 Jairo Galaviz Other [employer] Other 01-08-2021 11:15-0400 Body weight 99.79 kg Jairo Galaviz Other [employer] Other Encounters Encounter Date Encounter Type Care Provider Facility Start: 01-26-2024 End: 01-26-2024 Patient encounter procedure MD Jason Quick Work Phone: [facility] Work Phone: Start: 01-26-2024 End: 01-26-2024 ambulatory MD Jason Quick Work Phone: [facility] Work Phone: Start: 01-26-2024 End: 01-26-2024 ambulatory [facility] Work Phone: Start: 01-26-2024 End: 01-26-2024 Patient encounter procedure [facility] Work Phone: Start: 11-24-2023 End: 11-24-2023 ambulatory [facility] Work Phone: Start: 11-24-2023 End: 11-24-2023 Patient encounter procedure [facility] Work Phone: Start: 10-06-2023 End: 10-06-2023 ambulatory [facility] Work Phone: Start: 10-06-2023 End: 10-06-2023 Patient encounter procedure [facility] Work Phone: Start: 09-18-2023 End: 09-18-2023 ambulatory NADIA [facility] Start: 09-18-2023 Non-patient / Non-visit [facility] Work Phone: Start: 08-16-2023 End: 08-16-2023 Patient encounter procedure [facility] Work Phone: Start: 08-11-2023 End: 08-11-2023 ambulatory [facility] Work Phone: Start: 08-11-2023 End: 08-11-2023 Patient encounter procedure [facility] Work Phone: Start: 12-31-2022 End: 12-31-2022 ambulatory MD Jason Quick Work Phone: [facility] Work Phone: Start: 12-31-2022 End: 12-31-2022 Patient encounter procedure MD Jason Quick Work Phone: [facility] Work Phone: Start: 07-22-2022 Encounter for genera l adult medical examination without abnormal findings DR JASON QUICK . [facility] Start: 07-16-2022 End: 07-17-[address] JASON QUICK . Facility:[facility] Start: 07-16-2022 End: 07-17-2022 Encounter for general adult medical examination without abnormal findings DR JASON QUICK . Facility:[facility] Start: 06-29-2022 End: 06-29-[address] JASON QUICK . Facility:[facility] Start: 06-24-2022 End: 06-24-2022 ambulatory Vera Nagel Other [employer] Other Start: 06-24-2022 Office outpatient vi sit 25 minutes Vera Nagel [facility] Start: 01-28-2022 End: 01-28-2022 ambulatory Jairo Galaviz Other [employer] Other Start: 01-28-2022 Encounter by Asana Jairo Anastacia [facility] Start: 01-12-2022 Postop follow up vis it related to original px Jairo Anastacia [facility] Start: 01-12-2022 End: 01-12-2022 ambulatory MD Jason Quick Work Phone: [employer] Other Start: 01-12-2022 End: 01-12-2022 Patient encounter procedure MD Jason Quick Work Phone: [facility] Start: 01-03-2022 End: 01-03-[address] JASON QUICK . Facility: Start: 12-30-2021 End: 12-30-2021 Patient encounter procedure MD Jason Quick Work Phone: [facility] Start: 12-06-2021 End: 12-06-2021 ambulatory Jairo Galaviz Other [employer] Other Start: 12-06-2021 Encounter by Asana Jairo Galaviz [facility] Start: 12-01-2021 End: 12-01-2021 ambulatory Jairo Galaviz Other [employer] Other Start: 12-01-2021 Postop follow up vis it related to original px Jairo Anastacia [facility] Start: 12-01-2021 End: 12-01-2021 Patient encounter procedure MD Jason Quick Work Phone: [facility] Start: 11-17-2021 End: 11-17-2021 ambulatory Jairo Galaviz Other [employer] Other Start: 11-17-2021 [facility] visit new patient Jairo Galaviz [facility] Start: 11-15-2021 End: 11-15-2021 Patient encounter procedure MD Jason Quick Work Phone: [facility] Start: 11-15-2021 End: 11-15-2021 ambulatory Alecia Vallecillo Other [employer] Other Start: 11-15-2021 Office outpatient vi sit 15 minutes [facility] Start: 09-16-2021 End: 09-16-[address] JASON QUICK . Facility: Start: 02-19-2021 End: 02-19-2021 ambulatory Jairo Galaviz Other [employer] Other Start: 02-19-2021 Office outpatient vi sit 15 minutes Jairo Galaviz [facility] Start: 01-08-2021 Postop follow up vis it related to original px Jairo Galaviz [facility] Procedures Date Procedure Procedure Detail Performing Clinician Start: 01-26-2024 Screening mammograph y of bilateral breasts MD Jason Ring Phone: Start: 01-12-2022 X-ray of right foot MD Jason Ring Phone: Start: 12-30-2021 Screening mammograph y of bilateral breasts MD Jason Quick Work Phone: Start: 12-01-2021 X-ray of right foot MD Jason Ring Phone: Start: 11-15-2021 X-ray of right foot MD Jason Ring Phone: Plan of Treatment Date Care Activity Detail Author Start: 12-31-2022 MG Breast - bilatera l Screening [facility] Start: 12-31-2022 Screening mammograph y of bilateral breasts MM screening mammo BI w/CAD [facility] Start: 12-01-2021 X-ray of right foot XR foot RT min 3 V* [facility] Start: 12-01-2021 End: 12-01-2021 Patient encounter procedure Departed Clinical [facility] Immunizations Immunization Date Immunization Notes Care Provider Fa cility 11-23-2020 Toradol 30 mg/ml Jairo Christopher ey Other [employer] Other Payers Date Payer Category Payer Self-pay [id number] 2023 Unknown [id number] 1965 Unknown [id number] 1965 Unknown [id number] 1964 Unknown [id number] 1964 Unknown [id number] 1964 Unknown [id number] 1960 Private Health Insurance [id number] Blue Cross Blue Shield CBKAN [id number] Unknown [id number] Unknown MMO [id number] Unknown [id number] Worker's Compensation Neal [facility] [id number] Social History Date Type Detail Facility Unknown if ever smoked [employer] Other Sex Assigned At Sex Assigned At Bir th [employer] Other Start: 1965 Sex Assigned At Female F [facility] Start: 08-11-2023 Tobacco smoking status NHIS Never smoked tobacco (finding) [facility] Clinical Notes 01-08-2021 to 06-24-2022 Note Date & Type Note Facility 06-24-2022 Evaluation note Encounter Date Diagnosis Assessment Notes Jun, Contact with and (suspected) exposure to other viral communicable diseases (ICD-10 - Z20.828) Jun, Lower respiratory infection (ICD-10 - J22) Advised patient that rapid COVID/Influenz a A/B test was negative today in office. Discussed diagnosis with patient in detail. Advised patient that cough may linger for 3 weeks. Will treat today with antibiotic. Reviewed allergies and recent antibiotic use. Advised to take medications as prescribed, reviewed side effects of steroid, take with food and plenty of water, finish entire course. Encouraged supportive care as directed, push fluids and rest, may use Tylenol as needed for fever/discomfo rt, cool mist humidifier. May use Tessalon Perles as needed for cough. Patient to follow up with PCP in 2-3 days. Immediate eval if SOB, difficulty breathing, chest pain, dizziness, or other concerning symptoms. Patient verbalizes understanding and is agreeable to treatment plan [employer] Other 09-28-2022 Evaluation note* Encounter Date Diagnosis Assessment Notes Treatment Notes Treatment Clinical Notes Dec, Closed fracture of shaft of metatarsal bone of right foot with routine healing, subsequent encounter (ICD-10 - S92.301D) Erin returns with right fifth metatarsal shaft fracture. At this juncture we have discussed the findings and diagnosis as well as personally reviewed appropriate imaging and performed interpretation of related testing and examination with the patient in office today. Continue increasing activities from this point. She is not quite ready to return to work but she will let us know when she can. I have no restrictions from her from the standpoint. We will plan for follow-up in 6 weeks if needed The patient has been involved in our cooperative treatment plan and agrees to move forward with treatment at this time. Radiographs reviewed with patient today. Discussed with patient to slowly progress weight bearing as tolerated. Discussed with patient to continue off work at time. Patient given work note [employer] Other 08-17-2022 Evaluation note* Encounter Date Diagnosis Assessment Notes Treatment Notes Treatment Clinical Notes Nov, Closed fracture of shaft of metatarsal bone of right foot with routine healing, subsequent encounter (ICD-10 - S92.301D) Erin returns with right fifth metatarsal shaft fracture. At this juncture we have discussed the findings and diagnosis as well as personally reviewed appropriate imaging and performed interpretation of related testing and examination with the patient in office today. At this point I will allow her to advance weightbearing as tolerated inside the boot and then graduate from the boot as she sees comfortable. Continue off work. Follow-up in 6 weeks for recheck and repeat x-rays. Hopefully full release at that time The patient has been involved in our cooperative treatment plan and agrees to move forward with treatment at this time. Radiographs reviewed with patient as healing fracture. Patient is progressing well from injury. May progress out of boot and into a supportive shoe as tolerated. Advised once patient is in normal shoes without pain, may start driving. Advised patient plan to be off work for the next 6 weeks. [employer] Other 08-03-2022 Evaluation note* Encounter Date Diagnosis Assessment Notes Treatment Notes Treatment Clinical Notes Nov, Closed fracture of shaft of metatarsal bone of right foot, initial encounter (ICD-10 - S92.301A) Erin presents with right fifth metatarsal shaft fracture. At this juncture we have discussed the findings and diagnosis as well as personally reviewed appropriate imaging and performed interpretation of related testing and examination with the patient in office today. Prior medical notes [facility] ED and history have been reviewed. At this time I would recommend boot wear with nonweightbearing to the right foot. We discussed gentle range of motion exercises and hygiene functions outside of the boot. We will plan for follow-up 2 weeks for repeat x-rays. The patient has been involved in our cooperative treatment plan and agrees to move forward with treatment at this time. Patient has sustained a 5th metatarsal fracture. We discussed that this can take at least 6 weeks to heal. Instructed patient to be non weight bearing. Patient placed in CAM boot from home. Patient instructed on ice and elevation for swelling and pain relief. Patient given note to be off work. Patient given order for handicap socorro. Nov, Other See orders for this visit as documented in the electronic medical record. [employer] Other 08-01-2022 Evaluation note* Encounter Date Diagnosis Assessment Notes Treatment Notes Treatment Clinical Notes Nov, Injury of right foot, initial encounter (ICD-10 - S99.921A) Nov, Closed nondisplaced fracture of fifth metatarsal bone of right foot, initial encounter (ICD-10 - S92.354A) Use RICE therapy as discussed: Rest, Ice Compression, Elevate. Apply ice to affected area 3-4 times daily (Do not place ice source directly on skin, must cover with towel-like material). Take medication as directed. Rest and elevate sore extremity as much as possible. Do not take OTC medication pain relievers if prescription of medication given in office today. Contact ortho office [employer] Other 11-05-2021 Evaluation note* Encounter Date Diagnosis Assessment Notes Treatment Notes Treatment Clinical Notes Feb, Nondisplaced fracture of lateral malleolus of left fibula, initial encounter for closed fracture (ICD-10 - S82.65XA) Erin returns today with left ankle distal fibula avulsion and left ankle sprain. She has returned to normal shoewear without issues or pain. She is currently happy with how her ankle feels. At this juncture we have discussed the findings and diagnosis as well as personally reviewed appropriate imaging and performed interpretation of related testing and examination with the patient in office today. Prior medical notes and history have been reviewed. At this time I would recommend advancing activities without restrictions. Continue to improve and work on ankle motion and strength. Return to work as tolerated without restrictions. The patient has been involved in our cooperative treatment plan and agrees to move forward with treatment at this time. Patient is healing well. She was instructed to use her brace or boot as needed. Patient can progress with activity as tolerated without restrictions. We will follow up with the patient PRN. RETURN TO WORK FULL DUTY NO RESTRICTIONS. [employer] Other 09-24-2021 Evaluation note* Encounter Date Diagnosis Assessment Notes Treatment Notes Treatment Clinical Notes Dec, Nondisplaced fracture of lateral malleolus of left fibula, initial encounter for closed fracture (ICD-10 - S82.65XA) Erin returns today with left ankle distal fibula avulsion and left ankle sprain. She has continued to wear her boot and has been weightbearing as tolerated with only minimal discomfort. At this juncture we have discussed the findings and diagnosis as well as personally reviewed appropriate imaging and performed interpretation of related testing and examination with the patient in office today. Prior medical notes and history have been reviewed. At this time I would recommend weaning out of the boot and into an Aircast as tolerated. I would also like to get her into formal physical therapy and have provided an order today. We will plan to do therapy and bracing over the next 6 weeks. We will plan for follow-up in 6 weeks for repeat x-rays and reevaluation. The patient has been involved in our cooperative treatment plan and agrees to move forward with treatment at this time. Xrays reviewed with patient today. Patient is progressing well from this injury. We discussed the importance of continuing to work on range of motion and strength exercise. We will provide a prescription for formal physical therapy. We discussed progressive weight bearing on the the involved extremity as pain allows. Patient placed into a air brace today, along with directions of use. We discussed use of this brace for 6-12 weeks as needed. Call with any questions or concerns. [employer] Other Evaluation noteNo InformationNort [employer] Other Evaluation noteNo assessment information available [facility] Work Phone: Evaluation note* Diagnosis Onset Date Resolution Status Anxiety and depression acute BMI 33.0-33.9,adult acute Hyperlipidemia, unspecified acute Obesity acute Snores acute Vitamin D deficiency, unspecified acute Anxiety and depression acute BMI 33.0-33.9,adult acute Hyperlipidemia, unspecified acute Obesity acute Snores acute Vitamin D deficiency, unspecified acute [facility] Work Phone: Evaluation note* Diagnosis Onset Date Resolution Status Anxiety and depression acute BMI 33.0-33.9,adult acute Hyperlipidemia, unspecified acute Obesity acute Prediabetes acute Snores acute Vitamin D deficiency, unspecified acute Anxiety and depression acute BMI 33.0-33.9,adult acute Hyperlipidemia, unspecified acute Obesity acute Prediabetes acute Snores acute Vitamin D deficiency, unspecified acute [facility] Work Phone: History general Narrative - Reported* Type Description Date Medical History Anxiety Medical History Seasonal allergies Medical History Esophageal reflux Surgical History C section Hospitalization History child [facility] [employer] Other Chief Complaint and Reason for Visit Chief Complaint S99.921A S92.301D Chief Complaint S99.921A S92.301D Screening Chief Complaint Screening Chief Complaint Initial WMN/[place] Chief Complaint Initial WMN/[place] WMN f/u Reason for Visit Anxiety and depressi on BMI 33.0-33.9,adult Hyperlipidemia, unspecified Obesity Snores Vitamin D deficiency, unspecified Anxiety and depression BMI 33.0-33.9,adult Hyperlipidemia, unspecified Obesity Snores Vitamin D deficiency, unspecified Chief Complaint WMN f/u Reason for Visit Anxiety and depressi on BMI 33.0-33.9,adult Hyperlipidemia, unspecified Obesity Prediabetes Snores Vitamin D deficiency, unspecified Anxiety and depression BMI 33.0-33.9,adult Hyperlipidemia, unspecified Obesity Prediabetes Snores Vitamin D deficiency, unspecified Chief Complaint WMN f/u Yearly Reason for Visit Anxiety and depressi on BMI 33.0-33.9,adult Hyperlipidemia, unspecified Obesity Prediabetes Snores Vitamin D deficiency, unspecified Anxiety and depression BMI 33.0-33.9,adult Hyperlipidemia, unspecified Obesity Prediabetes Snores Vitamin D deficiency, unspecified Advance Directives No Advanced Directives Records Found Advance Directive Response Recorded Date/ Time Advance Directives No October 11 1:19pm Summary Purpose Family History No Family History Records Found Relationship Condition Age at Onset Recorded Date/T roxanne brother Epilepsy Unknown Heart disease Unknown Unknown father Unknown Malignant neoplasm Unknown Not Specified Parkinson's disease Unknown Relationship Condition Age at Onset Recorded Date/T roxanne brother Epilepsy Unknown Heart disease Unknown Unknown father Unknown Malignant neoplasm Unknown mother Parkinson's disease Unknown Additional Source Comments REASON FOR VISIT (unrecogniz ed section and content) Recheck Left AnkleRecheck Le ft AnkleRIGHT FOOT INJURY, DROPPED HEAVY OBJECT ON ITRight Foot InjuryRecheck Right FootRE: ADA Medical Leave FormRecheck Right FootReturn to WorkSINUS CONGESTION, COUGH Care Teams (unrecognized sec tion and content) Team Status: Active Member Role Status Dates Jason Quick MD Primary Care Provider Active Team Status: Inactive Member Role Status Dates Jason Quick MD Primary Care Provider Active Start: November 24, 2023 End: November 24, 2023 Nadia Flower APRN Attending Provider Active Start: November 24, 2023 End: November 24, 2023 Team Status: Inactive Member Role Status Dates Jason Quick MD Primary Care Provider Active Start: January 26, 2024 End: January 26, 2024 Nadia Flower APRN Attending Provider Active Start: January 26, 2024 End: January 26, 2024 Team Status: Active Member Role Status Dates Jason Quick MD Primary Care Provider Active Start: September 18, 2023 Nadia Flower APRN Attending Provider Active Start: September 18, 2023 Team Status: Inactive Member Role Status Dates Jason Quick MD Primary Care Provider Active Start: October 06, 2023 End: October 06, 2023 Nadia Flower APRN Attending Provider Active Start: October 06, 2023 End: October 06, 2023 Team Status: Inactive Member Role Status Dates Jason Quick MD Primary Care Provider Active Jairo Galaviz DO Attending Provider Active Team Status: Inactive Member Role Status Dates Jason Quick MD Primary Care Provider Active FAISAL Argueta Attending Provider Active Team Status: Inactive Member Role Status Dioni Quick MD Primary Care Provider, Referring Pr ovider Active Referral Self Attending Provider Active Team Status: Inactive Member Role Status Dates Jsaon Quick MD Primary Care Provider Active Start: August 11, 2023 End: August 11, 2023 Nadia Flower APRN Attending Provider Active Start: August 11, 2023 End: August 11, 2023 Team Status: Inactive Member Role Status Dates Jason Quick MD Primary Care Provider Active Start: August 16, 2023 End: August 16, 2023 MALIHA Qureshi Attending Provider Active Start: August 16, 2023 End: August 16, 2023 Team Status: Inactive Member Role Status Dates Jason Quick MD Primary Care Provider Active Start: January 26, 2024 End: January 26, 2024 Referral Self Attending Provider Active Start: O ct2023 End: January 26, 2024 Goals (unrecognized section and content) Goals may be documented in a n alternate section INFORMATION SOURCE (unrecogn ized section and content) DATE CREATED AUTHOR 07/23/2022 [facility] DATE CREATED AUTHOR AUTHOR'S ORGANIZ ATION 09/19/2023 [facility] DATE CREATED AUTHOR AUTHOR'S ORGANIZ ATION 02/02/2024 [facility] FOR RECORDS PERTAINING TO PATIENTS WHO ARE OR HAVE BEEN ENROLLED IN A CHEMICAL DEPENDENCY/SUBSTANCEABUSE PROGRAM, SOME INFORMATION MAY BE OMITTED. This clinical summary was aggregated from multiple sources. Caution should be exercised in using it in the provision of clinical care. This summary normalizes information from multiple sources, and as a consequence, information in this document may materially change the coding, format and clinical context of patient data. In addition, data may be omitted in some cases. CLINICAL DECISIONS SHOULD BE BASED ON THE PRIMARY CLINICAL RECORDS. [facility] [employer] provides no warranty or guarantee of the accuracy or completeness of information in this document.
--- NOTE | 2024-04-01 07:50 | ED.URI1 ---
HPI - URI/Sore Throat General Chief Complaint: Upper Respiratory Infection Stated Complaint: CHEST PAINS COUGH Time Seen by Provider: 04/01/24 07:39 Source: patient Limitations: no limitations History of Present Illness HPI Narrative: 58-year-old female presents for cough. She has had it for 4 days and is mostly nonproductive. She states there is some people at work who are ill. No vomiting or diarrhea or known fever. She feels some tightness in her chest. Related Data Home Medications ?Medication ?Instructions ?Recorded ?Confirmed citalopram 40 mg tablet 40 mg PO DAILY 04/01/24 04/01/24 meclizine 25 mg tablet 25 mg PO PRN 04/01/24 04/01/24 pantoprazole 40 mg tablet,delayed 40 mg PO DAILY 04/01/24 04/01/24 release semaglutide (weight loss) 0.25 0.25 mg subcut QWEEK 04/01/24 04/01/24 mg/0.5 mL subcutaneous pen injector (Feedback) Previous Rx's ?Medication ?Instructions ?Recorded benzonatate 100 mg capsule 100 mg PO TID PRN cough #20 caps 04/01/24 Allergies Allergy/AdvReac Type Severity Reaction Status Date / Time No Known Drug Allergies Allergy Verified 04/01/24 07:41 Review of Systems ROS Narrative A ten point review of systems is negative except as noted above. PFSH PFSH Social History Little interest or pleasure in doing things: not at all Feeling down, depressed, or hopeless: not at all Exam Narrative Exam Narrative: Nurses note and vital signs reviewed and patient is not hypoxic. General: The patient appears well and in no apparent distress. Patient is resting comfortably on cart. Skin: Warm, dry, no pallor noted. There is no rash noted. Head: Normocephalic, atraumatic Eye: Normal conjunctiva, no drainage Ears, Nose, Mouth, and Throat: oral mucosa is moist. Nares patent. Cardiovascular: Regular Rate and Rhythm Respiratory: Patient is in no distress, no accessory muscle use, lungs are clear to auscultation, no wheezing, rales or rhonchi Back: non-tender GI: Soft and nontender Musculoskeletal: The patient has no evidence of calf tenderness, no pitting edema, symmetrical pulses noted bilaterally Neurological: A&O, normal speech Psychiatric: Cooperative Constitutional Vital Signs, click to edit/add: Last Vital Signs Temp 98.1 F 04/01/24 07:43 Pulse 80 04/01/24 08:38 Resp 18 04/01/24 08:38 BP 144/89 H 04/01/24 08:38 Pulse Ox 98 04/01/24 08:38 O2 Del Method Room Air 04/01/24 07:43 Course Vital Signs Vital signs: Vital Signs Temperature 98.1 F 04/01/24 07:43 Pulse Rate 74 04/01/24 07:43 Respiratory Rate 18 04/01/24 07:43 Blood Pressure 141/98 H 04/01/24 07:43 Pulse Oximetry 97 04/01/24 07:43 Oxygen Delivery Method Room Air 04/01/24 07:43 Temperature 98.1 F 04/01/24 07:43 Pulse Rate 80 04/01/24 08:38 Respiratory Rate 18 04/01/24 08:38 Blood Pressure 144/89 H 04/01/24 08:38 Pulse Oximetry 98 04/01/24 08:38 Oxygen Delivery Method Room Air 04/01/24 07:43 MDM - URI/Sore Throat MDM Narrative Medical decision making narrative: COVID, influenza, and chest x-ray are all negative. My clinical impression is that she has a viral URI and should be treated symptomatically. There is no indication for an antibiotic. Treatment diagnosis and follow-up were discussed with the patient. Differential Diagnosis Differential diagnosis: Likely upper respiratory infection, viral infection, influenza and other (COVID, pneumonia) Lab Data Attestation: I reviewed the patient's lab results. Labs: Lab Results 04/01/24 Range/Units 07:50 Influenza Type A Ag Negative Influenza Type B Ag Negative SARS-CoV-2 Ag (CV2AG) Negative (NEGATIVE) Imaging Data Chest x-ray: Radiologist's impression: ITS Impressions Chest X-Ray 04/01/24 08:06 IMPRESSION: No acute cardiopulmonary process Electronically authenticated by: ANDRES ISAAC Date: 04/01/2024 08:13 Discharge Plan Discharge Chief Complaint: Upper Respiratory Infection Clinical Impression: Upper respiratory infection Patient Disposition: Home, Self-Care Time of Disposition Decision: 08:37 Condition: Good Mode of Transportation: Private Vehicle Prescriptions / Home Meds: New benzonatate 100 mg capsule 100 mg PO TID PRN (Reason: cough) Qty: 20 0RF No Action citalopram 40 mg tablet 40 mg PO DAILY meclizine 25 mg tablet 25 mg PO PRN pantoprazole 40 mg tablet,delayed release (DR/EC) 40 mg PO DAILY Wegovy 0.25 mg/0.5 mL pen injector 0.25 mg subcut QWEEK Print Language: [place] Instructions: Upper Respiratory Infection (ED) Referrals: Andrzej Quick MD [Primary Care Provider] - 1 week
--- NOTE | 2024-04-01 08:06 | XR_ITS ---
The [address] [address] Patient Name: VELVET CHILDRESS MRN: [id number] date: 1965 Sex: F Assigned Patient Location: ER Current Patient Location: ER Accession/Order Number: [id number] Exam Date: 04/01/2024 08:00 Report Date: 04/01/2024 08:13 At the request of: CLAY PAYTON Procedure: XR chest 1V EXAMINATION: XR chest 1V HISTORY: cough COMPARISON: No relevant comparison available. TECHNIQUE: AP portable FINDINGS: LUNGS: No significant pulmonary parenchymal abnormalities. VASCULATURE: No increased pulmonary vasculature. PLEURA: No pneumothorax, effusion, or pleural thickening. CARDIAC: No cardiomegaly or cardiac silhouette abnormality. MEDIASTINUM: No visible mass or adenopathy. BONES: No fracture or visible bone lesion. OTHER: Negative. XR/XR chest 1V IMPRESSION: No acute cardiopulmonary process Electronically authenticated by: ANDRES ISAAC Date: 04/01/2024 08:13
[2024-04-01 08:23] LABS: Influenza Virus A Antigen Negative; Influenza Virus B Antigen Negative; Internal Control Within Normal Limits; SARS-CoV-2 Ag NEGATIVE (NEGATIVE)
[2024-04-01 08:24] LABS: Internal Control Within Normal Limits
[2024-04-01 08:38] VITALS: BP 144/89; PULSE 80; O2SAT 98
== END 2024-04-01 08:47 | disposition home or self-care (01) ==
PROVIDERS: Emergency Provider Emergency Medicine; PCP Family Medicine
DX: J06.9 Acute upper respiratory infection, unspecified (principal)
CPT/HCPCS: 71045; 87804; 87811; 99284